=== PATIENT | female | born 1950 | race Asian ===

== ENCOUNTER 2018-09-08 10:23 | Emergency (ER) | payer OTHER ==
[~2018-09-08] VITALS: Ht 162.6 cm; Wt 56.8 kg
[2018-09-08] MEDS ORDERED: VALS320T2 PO (10:31)
[2018-09-08] MEDS ORDERED: ATOR20TA86 PO (10:31)
[2018-09-08] MEDS ORDERED: PERTUSS(ACELL),DIPH,TET VAC/PF 0.5 ML VIAL IM ONE (13:15)
[2018-09-08 13:19] VITALS: BP 136/80
== END 2018-09-08 13:23 | disposition home or self-care (01) ==
LOC: EMS 10:25
DX: S91.155A Open bite of left lesser toe(s) without damage to nail, initial encounter (principal); E78.00 Pure hypercholesterolemia, unspecified; I10 Essential (primary) hypertension; Z79.899 Other long term (current) drug therapy; W54.0XXA Bitten by dog, initial encounter; Y93.89 Activity, other specified; Y92.89 Other specified places as the place of occurrence of the external cause; Y99.8 Other external cause status
CPT/HCPCS: 90471; 90715